=== PATIENT | female | born 1965 | race American Indian/Alaskan Native ===

== ENCOUNTER 2024-08-06 09:10 | Emergency (ER) | payer BC, SELFPAY ==
[2024-08-06 09:46] VITALS: BP 150/96; PULSE 98; RESP 16; TEMP 36.8; O2SAT 96; BMI 41.5
--- NOTE | 2024-08-06 09:52 | EDNOTE_ITS ---
ED Extremity Problem RME/HPI General Chief complaint: Extremity Problem,Nontraumatic Stated complaint: RIGHT KNEE PAIN FOR 3 MONTHS, DENIES INJURY Time Seen by Provider: 08/06/24 09:18 Arrival date/time: 08/06/24 09:10 59-year-old female presents the emergency department complaints of right knee pain ongoing x 3 months patient has had imaging already patient reports that she is a follow-up scheduled with Dr. Gutierrez orthopedist and scheduled for an outpatient MRI patient reports that she was hoping to get an MRI here in the emergency department to expedite the process Limitations: no limitations Related Data Home Medications ?Medication ?Instructions ?Recorded ?Confirmed omeprazole 40 mg capsule,delayed 40 mg PO QDAY 11/16/18 12/04/19 release zolpidem 5 mg tablet 5 mg PO QHSPRN 11/16/18 12/04/19 Previous Rx's ?Medication ?Instructions ?Recorded hydrocodone 5 mg-acetaminophen 325 1 tab PO Q4H PRN pain #10 tabs 12/04/19 mg tablet ([place]) levofloxacin 500 mg tablet 500 mg PO QDAY #7 tabs 12/04/19 (Levaquin) metronidazole 250 mg tablet 250 mg PO Q12H #14 tabs 12/04/19 (Flagyl) hydrocodone 5 mg-acetaminophen 325 1 tab PO BID PRN pain #10 tabs 08/06/24 mg tablet meloxicam 7.5 mg tablet 7.5 mg PO QDAY 7 days #7 tabs 08/06/24 Allergies Allergy/AdvReac Type Severity Reaction Status Date / Time No Known Allergies Allergy Verified 08/06/24 09:12 Review of Systems Review of Systems Systems Reviewed: All systems reviewed, normal except as documented Constitutional Constitutional: Reports system reviewed and no additional complaints, except as documented, Denies fever(s) and Denies headache(s) Eyes Eyes: Reports system reviewed and no additional complaints, except as documented and Denies blurry vision ENT Ears, Nose, Mouth, and Throat: Reports system reviewed and no additional complaints, except as documented, Denies headache(s), Denies nasal congestion and Denies nasal discharge Cardiovascular Cardiovascular: Reports system reviewed and no additional complaints, except as documented, Denies chest pain and Denies dyspnea Respiratory Respiratory: Reports system reviewed and no additional complaints, except as documented, Denies chest congestion, Denies cough and Denies dyspnea Gastrointestinal Gastrointestinal: Reports system reviewed and no additional complaints, except as documented and Denies abdominal pain Musculoskeletal Musculoskeletal: Reports system reviewed and no additional complaints, except as documented, Reports arthralgias, Denies numbness, Reports stiffness and Denies tingling Integumentary/Breasts Skin/Breast: Reports system reviewed and no additional complaints, except as documented and Denies rash Neurologic Neurologic: Reports system reviewed and no additional complaints, except as documented, Reports as per HPI, Denies headache(s), Denies numbness and Denies tingling Past Medical History Past Medical History NEUROLOGIC: Negative Neurological Disorders or Seizures CARDIAC: Negative Cardiac Disorders or Congestive Heart Failure RESPIRATORY: Positive Sleep Apnea (cpap); Negative Chronic Obstructive Pulmonary Disease (COPD) or Asthma GASTROINTESTINAL: Positive Hiatal Hernia (sleeve), Gastroesophageal Reflux Disease and Obesity; Negative Gastrointestinal Disorders GENITOURINARY: Negative Genitourinary Disorders or Renal Disease REPRODUCTIVE: Positive Previous Pregnancies (2) MUSCULOSKELETAL: Positive Musculoskeletal Disorders (low vitamin D) ENDOCRINE: Negative Endocrine Disorders, Diabetes Mellitus Type 1 or Diabetes Mellitus Type 2 HEMATOLOGIC: Positive Blood Disorders and Anemia; Negative Sickle Cell Disease or Clotting Problems OTHER HISTORY: Positive Hospitalization (post surg) and Chicken Pox; Negative Blood Transfusions or Anesthesia Reactions Family History FAMILY HISTORY: Positive Family Cardiac Disorders (mom - CABGx3) and Family Surgery (mom); Negative Family Anesthesia Reaction Surgical History SURGICAL: Positive Gastric Bypass Surgery (sleeve), Hysterectomy and Section (x2) Social History SMOKING STATUS: Never smoker ED Exam General Limitations: Present no limitations General appearance: Present alert and in no apparent distress Head Head exam: Present atraumatic, normocephalic and normal inspection Eye Eye exam: Present normal appearance, PERRL and EOMI; Absent conjunctival inject ion ENT ENT exam: Present normal exam, normal oropharynx and mucous membranes moist Neck Neck exam: Present normal inspection, full ROM and trachea midline Chest Chest inspection: Present normal inspection and symmetric chest wall rise Respiratory Respiratory exam: Present normal lung sounds bilaterally; Absent respiratory distress, wheezes, stridor or accessory muscle use Cardiovascular Cardiovascular exam: Present regular rate, normal rhythm and normal heart sounds Abdominal Exam Abdominal exam: Present soft and normal bowel sounds Extremities Exam Extremities exam: Present full ROM, tenderness, normal capillary refill and joint swelling; Absent pedal edema or calf tenderness Back Exam Back exam: Present normal inspection and full ROM Neurological Exam Neurological exam: Present alert, oriented X3 and CN II-XII intact Psychiatric Psychiatric exam: Present normal affect and normal mood Skin Skin exam: Present warm, dry, intact and normal color Course Quality Measures none Vital Signs Vital signs: Vital Signs Temperature 98.2 F 08/06/24 09:46 Pulse Rate 98 08/06/24 09:46 Respiratory Rate 16 08/06/24 09:46 Blood Pressure 150/96 H 08/06/24 09:46 Pulse Oximetry (%) 96 08/06/24 09:46 Oxygen Delivery Method Room Air 08/06/24 09:46 O2 saturation 96% room air within normal limits Extremity Problem MDM Narrative MDM Narrative:: 59-year-old female presents the emergency department complaints of right knee pain ongoing x 3 months patient has had imaging already patient reports that she is a follow-up scheduled with Dr. Gutierrez orthopedist and scheduled for an outpatient MRI patient reports that she was hoping to get an MRI here in the emergency department to expedite the process On exam patient appears well-appearing patient does not appear ill or toxic in no acute distress Patient does have knee pain but does have full range of motion patient is ambulatory Patient has a knee brace in place Explained to the patient that unfortunately we will not be able to expedite this as it is not emergent at this time Patient instructed to follow-up with her primary care doctor for her MRI and outpatient referral to Dr. Gutierrez orthopedmehul For emergent concerns patient struck to return immediately Patient data External records reviewed:: [facility] previous records Clinical information provided by:: patient Social determinants that could affect healthcare access:: none Patient has the following chronic illnesses:: See history How is presenting disease/condition affected by chronic disease/condition?: caused by Evaluation data The following diagnostics were reviewed and interpreted by me:: other (specify) (N/A) Lab and/or radiology exams considered but not ordered:: N/A Interpretation Summary: reviewed imaging from previous visit Medications / Prescriptions Medications or Prescriptions considered but not ordered:: Rx given Medication administrations:: Rx given Consultations Consultation(s) initiated? (list below): No Diagnosis Extremity Problem Differential Diagnosis: other (Knee sprain, knee fracture) Most likely diagnosis given after review of the tests above:: Knee sprain Admission Indicated Admission indicated?: not indicated Admission Request Was there a request for admission?: No Disposition Plan Disposition Plan: Discharge Discharge Attestation Discharge Attestation: The patient and all family members were given an opportunity to ask questions and understood the discharge instructions. Discharge instructions specifically effects, indications for sooner follow up or return to the emergency department, and the expected course of current diagnosis. Patient condition: Stable Discharge Plan Plan Patient Disposition: HOME (Self Care) Disposition Comment: Stable Prescriptions/Referrals Prescriptions/Med Rec: New hydrocodone-acetaminophen 5-325 mg tablet 1 tab PO BID MDD 10 PRN (Reason: pain) Qty: 10 0RF meloxicam 7.5 mg tablet 7.5 mg PO QDAY 7 Days Qty: 7 0RF No Action hydrocodone-acetaminophen [[place]] 5-325 mg tablet 1 tab PO Q4H MDD 3 PRN (Reason: pain) Qty: 10 0RF levofloxacin [Levaquin] 500 mg tablet 500 mg PO QDAY Qty: 7 0RF metronidazole [Flagyl] 250 mg tablet 250 mg PO Q12H Qty: 14 0RF omeprazole 40 mg Capsule,Delayed Release(Dr/Ec) 40 mg PO QDAY zolpidem 5 mg Tablet 5 mg PO QHSPRN Referrals: Jose Flores PA-C [Primary Care Provider] - 08/07/24 Problem List Clinical Impression: Acute pain of right knee Patient/Caregiver Discharge Instructions Education Materials: ED Arthralgia Additional Instructions: Please follow up with your primary care doctor in the next 24-48hrs for any worsening symptoms return here immediately Print Language: Mongolian Stand Alone Forms: [employer]a Award Info., Work/School Release, Patient Portal Info Letter LUÍS/BRYAN Supervising Physician LUÍS/BRYAN Supervising Physician: Dr [email or web address]
== END 2024-08-06 11:01 | disposition home or self-care (01) ==
PROVIDERS: Emergency Provider Emergency Medicine; PCP Physician Assistant
DX: M25.561 Pain in right knee (principal)
CPT/HCPCS: 99281

== ENCOUNTER 2024-09-24 09:15 | Outpatient (AMB) | payer BC, OTHER, SELFPAY ==
[2024-09-24 09:27] VITALS: BP 114/73; PULSE 83; RESP 18; TEMP 36.8; O2SAT 96; BMI 40.9
--- NOTE | 2024-09-24 09:27 | ORTHONT_ITS ---
Vital signs 09/24/24 09:27 Height 1.52 m Height Method Stated Weight 95.056 kg Weight Measurement Method Standing Scale BMI 40.9 BP 114/73 Blood Pressure Source Automatic Cuff Blood Pressure Location Right Upper Arm Position Sitting Respiration 18 Pulse 83 Pulse Source Monitor Temp 98.2 F Temp Source Temporal Artery Scan Pulse Oximetry (%) 96 Oxygen Delivery Method Room Air Med/Allergies Allergies & Medications Allergies No Known Allergies Allergy (Verified 09/24/24 09:28) Medication Reconciliation zolpidem 5 mg tablet 5 mg PO QHSPRN 11/16/18 [History Confirmed 09/24/24] hydrocodone 5 mg-acetaminophen 325 mg tablet 1 tab PO BID PRN pain #10 tabs 08/06/24 [Rx Confirmed 09/24/24] meloxicam 15 mg tablet 15 mg PO QDAY #60 tabs 09/24/24 [Rx] pantoprazole 20 mg tablet,delayed release 20 mg PO QDAY 09/24/24 [History Confirmed 09/24/24] zolpidem 5 mg tablet 5 mg PO QHS 09/24/24 [History Confirmed 09/24/24] Exam Exam Patient is in no acute distress and is cooperative with the examination today. Breathing is nonlabored. In no respiratory distress. Bilateral extremities were evaluated and demonstrates sensation intact to light touch. Palpable pedal pulses are present. No significant edema is present. Bilateral hips were examined. The patient has no pain with log roll of the hips. Internal rotation to 30 degrees and external rotation to 30 degrees is painless. Negative FADIR. The left knee was examined. The left knee is in varus alignment. Range of motion from 0-115 degrees. Knee is stable to varus and valgus as well as AP translation with <5mm. Patient has a negative McMurrays. There is no pain with patellofemoral compression and no crepitus noted. The knee is tender to palpation medially. The right knee was also examined. The right knee is in varus alignment. Range of motion from 0-120 degrees. Knee is stable to varus and valgus as well as AP translation with <5mm. Patient has a negative McMurrays. There is no pain with patellofemoral compression and no crepitus noted. The knee is tender to palpation medially. I have a standing AP which demonstrates moderate arthritis of both knees Assessment and Plan Problem List (1) Degenerative arthritis of knee, bilateral: Status: Acute Plan: Patient is a pleasant 59-year-old female with bilateral knee pain and bilateral knee arthritis. We discussed nonoperative and operative options. I would like to get weightbearing x-rays to better evaluate knee. We discussed different treatment options depending on what that shows. We also prescribed her an anti- inflammatory Office Procedures GNS Level of Care Nursing/Assessment Patient Status: Established Patient Nursing Assessment/Reassesment: Medication Reconciliation, Update PMH in EMR and Vital Signs Coordination of Care: Complex Care and Chronic Disease 1-5, Education Complex Pt/Fam, Consent,records obtained, informed consent, Results/Orders obtained and Staff clarify orders Established Patient Charge Established Patient Point Assignment: 95 Established Patient Point Charge: Level 3 (80-115) MA Intake Visit Data Collection New Patient or Established: Established Patient (seen at [facility] within 3 years) Reason for Visit:: RIGHT KNEE PAIN Seen by Clinical Staff ONLY (RN/MA): No Verbal consent obtained for Telemed visit?: No 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 PCP or OBGYN visit in last 3 months: Yes Hx Now: No Do You Feel Safe at Home: Yes Authorities Contacted: N/A Questionairres Past Medical History Past Medical History Have you ever been diagnosed with any of the following: Neurological Problems Seizures: No Cardiology Problems Congestive Heart Failure: No Respiratory Problems Chronic Obstructive Pulmonary Disease (COPD): No Asthma: No Sleep Apnea: Yes (cpap) Smoking: No Smoking Cessation Counseling: No Smoking Exposure: No Stomache/Intestinal Problems Hiatal Hernia: Yes (sleeve) Gastroesophageal Reflux Disease: Yes Obesity: Yes Genital/Urinary Problems Renal Disease: No Reproductive Problems Previous Pregnancies: Yes (2) Endocrine Problems Diabetes Mellitus Type 1: No Diabetes Mellitus Type 2: No Blood Problems Anemia: Yes Sickle Cell Disease: No Clotting Problems: No Other Problems Hospitalization: Yes (post surg) Blood Transfusions: No Anesthesia Reactions: No Chicken Pox: Yes Surgical History Hysterectomy: Yes Subjective Visit Visit for: new patient and knee Immunization / Flu Flu Vaccine in the Last 12 Months: No Flu Vaccine Exclusion Criteria: No Exclusion Criteria History of Present Illness Chief complaint: RIGHT KNEE PAIN Date of injury / onset of symptoms: 6 MONTHS Candice is a pleasant 59 yo female. Carine is a pleasant 59-year-old female presenting with bilateral knee pain worse on the right. The pain has been going on for 6 months. She received a B12 with cortisone injection in her right knee 4 weeks ago and reported receiving moderate relief in pain. Currently takes Kirby 325 once a night for the past couple weeks. Personal History Occupation: [employer] PMH: BMI BMI Counceling provided: Yes Pain Pain level (0-10): 3 Pain duration: ALL DAY Pain location: inside (medial), outside (lateral), anterior and posterior Pain quality: sharp, dull and aching Pain timing: increases with activity Associated signs & symptoms: weakness and stiffness Ambulatory data Ambulatory device: none Treatments Improvement with previous injections: No Improvement with PT: No Improvement with NSAIDS: no Review of Systems Review of Systems: All systems negative unless otherwise noted in HPI.
--- NOTE | 2024-09-24 09:33 | XR_ITS ---
Examination: Bilateral knees 2 views Right lateral knee left lateral knee 2 views Bilateral axial knees single view Technique: Bilateral AP knees standing single view, bilateral PA knees standing flexion Standing right lateral knee left lateral knee 2 views Bilateral axial knees single view Exam date and time: 2024 09 hrs. Indications: Bilateral knee pain 6 months Findings: Moderate osteopenia Moderate narrowing medial lateral joint spaces more severe right knee No patellar dislocation Moderate osteoarthritis patellofemoral joints Impression: Osteoarthritis as above
== END 2024-09-24 09:44 | disposition home or self-care (01) ==
LOC: HODSRG 09:15
PROVIDERS: PCP Physician Assistant; Referring Provider Physician Assistant; Supervising Provider Orthopaedic Surgery Adult Reconstructive Orthopaedic Surgery; Visit Provider Orthopaedic Surgery Adult Reconstructive Orthopaedic Surgery
DX: M17.0 Bilateral primary osteoarthritis of knee (principal); G47.30 Sleep apnea, unspecified
CPT/HCPCS: 73564; 99213; G0463

== ENCOUNTER 2024-10-15 08:12 | Outpatient (AMB) | payer BC, OTHER, SELFPAY ==
[2024-10-15 08:31] VITALS: BP 126/76; PULSE 79; RESP 18; TEMP 36.6; O2SAT 97; BMI 41.1
--- NOTE | 2024-10-15 08:31 | PD.ORTHCLVIS ---
Vital signs 10/15/24 08:31 Height 1.52 m Height Method Stated Weight 94.971 kg Weight Measurement Method Standing Scale BMI 41.1 BP 126/76 Blood Pressure Source Automatic Cuff Blood Pressure Location Left Upper Arm Position Sitting Respiration 18 Pulse 79 Pulse Source Monitor Temp 97.8 F Temp Source Temporal Artery Scan Pulse Oximetry (%) 97 Oxygen Delivery Method Room Air Med/Allergies Allergies & Medications Allergies No Known Allergies Allergy (Verified 10/15/24 08:32) Medication Reconciliation zolpidem 5 mg tablet 5 mg PO QHSPRN 11/16/18 [History Confirmed 10/15/24] hydrocodone 5 mg-acetaminophen 325 mg tablet 1 tab PO BID PRN pain #10 tabs 08/06/24 [Rx Confirmed 10/15/24] meloxicam 15 mg tablet 15 mg PO QDAY #60 tabs 09/24/24 [Rx Confirmed 10/15/24] pantoprazole 20 mg tablet,delayed release 20 mg PO QDAY 09/24/24 [History Confirmed 10/15/24] zolpidem 5 mg tablet 5 mg PO QHS 09/24/24 [History Confirmed 10/15/24] Exam Exam Patient is in no acute distress and is cooperative with the examination today. Breathing is nonlabored. In no respiratory distress. Bilateral extremities were evaluated and demonstrates sensation intact to light touch. Palpable pedal pulses are present. No significant edema is present. Bilateral hips were examined. The patient has no pain with log roll of the hips. Internal rotation to 30 degrees and external rotation to 30 degrees is painless. Negative FADIR. The left knee was examined. The left knee is in varus alignment. Range of motion from 0-115 degrees. Knee is stable to varus and valgus as well as AP translation with <5mm. Patient has a negative McMurrays. There is no pain with patellofemoral compression and no crepitus noted. The knee is tender to palpation medially. The right knee was also examined. The right knee is in varus alignment. Range of motion from 0-120 degrees. Knee is stable to varus and valgus as well as AP translation with <5mm. Patient has a negative McMurrays. There is no pain with patellofemoral compression and no crepitus noted. The knee is tender to palpation medially. Bilateral knee x-rays demonstrate moderate arthritis of both knees Assessment and Plan Problem List (1) Degenerative arthritis of knee, bilateral: Status: Acute Plan: Patient is a pleasant 59-year-old female with bilateral knee pain and bilateral knee arthritis. We discussed nonoperative and operative options. We discussed he has mild to moderate arthritis. We will plan for a right knee injection today of cortisone. We also discussed the weight loss is a reasonable option. She is obese and this likely is contributing to her knee pain. She is very much interested in weight loss injections and we will defer to the primary care doctor for that. I do think weight loss will significantly help with Office Procedures GNS Level of Care Nursing/Assessment Patient Status: Established Patient Nursing Assessment/Reassesment: Medication Reconciliation, Update PMH in EMR and Vital Signs Coordination of Care: Complex Care and Chronic Disease 1-5, Education Complex Pt/Fam, Consent,records obtained, informed consent, Results/Orders obtained and Staff clarify orders Established Patient Charge Established Patient Point Assignment: 95 Established Patient Point Charge: EP Level 3 (80-115) Surgical Proc/IM SQ injection Major Surgical Procedure: Yes (RIGHT KNEE INJECTION) Medication Given Medication Given Medication Given: Yes Documented Dose Given: 4 Route: Infiitration Medication Given Medication Given Medication Given: Yes Documented Dose Given: 1 Route: Infiitration Office Meds Xylocaine 10 mg/mL (1 %) injection solution Performing Provider: Baron Gutierrez MD Performing Location: [facility] Administered by: Baron Gutierrez MD on 10/15/24 09:25 Dose Route Admin Location Dispensed Lot Number Expiration Date [facility] [address] [employer] 20 mL Infiltration 20 mL [id number] 01/14/28 12174-884-49 [facility] triamcinolone acetonide 40 mg/mL suspension for injection Performing Provider: Baron Gutierrez MD Performing Location: [facility] Administered by: Baron Gutierrez MD on 10/15/24 09:25 Dose Route Admin Location Dispensed Lot Number Expiration Date 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 PCP or OBGYN visit in last 3 months: Yes Hx Now: No Do You Feel Safe at Home: Yes Authorities Contacted: N/A Questionairres Past Medical History Past Medical History Have you ever been diagnosed with any of the following: Neurological Problems Seizures: No Cardiology Problems Congestive Heart Failure: No Respiratory Problems Chronic Obstructive Pulmonary Disease (COPD): No Asthma: No Sleep Apnea: Yes (cpap) Smoking: No Smoking Cessation Counseling: No Smoking Exposure: No Stomache/Intestinal Problems Hiatal Hernia: Yes (sleeve) Gastroesophageal Reflux Disease: Yes Obesity: Yes Genital/Urinary Problems Renal Disease: No Reproductive Problems Previous Pregnancies: Yes (2) Endocrine Problems Diabetes Mellitus Type 1: No Diabetes Mellitus Type 2: No Blood Problems Anemia: Yes Sickle Cell Disease: No Clotting Problems: No Other Problems Hospitalization: Yes (post surg) Blood Transfusions: No Anesthesia Reactions: No Chicken Pox: Yes Surgical History Hysterectomy: Yes Subjective Visit Visit for: follow up visit and knee (RT KNEE ) Immunization / Flu Flu Vaccine in the Last 12 Months: No Flu Vaccine Exclusion Criteria: Refused by Patient History of Present Illness Chief complaint: RIGHT KNEE PAIN Date of injury / onset of symptoms: 6 MONTHS Candice is a pleasant 59 yo female. Carine is a pleasant 59-year-old female presenting with bilateral knee pain worse on the right. The pain has been going on for 6 months. She received a B12 with cortisone injection in her right knee 4 weeks ago and reported receiving moderate relief in pain. Currently takes Flynn 325 once a night for the past couple weeks. Personal History Occupation: [employer] PMH: none BMI Counceling provided: Yes Pain Pain level (0-10): 7 Pain duration: 2 DAYS Pain location: anterior Pain quality: sharp and burning Pain timing: night, increases with activity and stairs Associated signs & symptoms: numbness, weakness and stiffness Ambulatory data Ambulatory device: none Walking distance (minutes): 1 Treatments Number of previous injections: 0 Improvement with previous injections: No Number of Physical Therapy sessions: 0 Improvement with PT: No Improvement with NSAIDS: n/a Review of Systems Review of Systems: All systems negative unless otherwise noted in HPI.
== END 2024-10-15 09:02 | disposition home or self-care (01) ==
LOC: HODSRG 08:12
PROVIDERS: PCP Physician Assistant; Referring Provider Physician Assistant; Supervising Provider Orthopaedic Surgery Adult Reconstructive Orthopaedic Surgery; Visit Provider Orthopaedic Surgery Adult Reconstructive Orthopaedic Surgery
DX: M17.0 Bilateral primary osteoarthritis of knee (principal); M25.561 Pain in right knee; M25.562 Pain in left knee
CPT/HCPCS: 20610; 99213; J3301; J3490; G0463

== ENCOUNTER 2025-01-14 08:05 | Outpatient (AMB) | payer BC, OTHER, SELFPAY ==
--- NOTE | 2025-01-14 08:14 | PD.ORTHCLVIS ---
Vital signs 01/14/25 08:18 Height 1.52 m Height Method Stated Weight 90.265 kg Weight Measurement Method Standing Scale BMI 39.0 BP 118/79 Blood Pressure Source Automatic Cuff Blood Pressure Location Right Upper Arm Position Sitting Respiration 18 Pulse 82 Pulse Source Monitor Temp 97.3 F Temp Source Temporal Artery Scan Pulse Oximetry (%) 94 L Oxygen Delivery Method Room Air Med/Allergies Allergies & Medications Allergies No Known Allergies Allergy (Verified 01/14/25 08:18) Medication Reconciliation zolpidem 5 mg tablet 5 mg PO QHSPRN 11/16/18 [History Confirmed 01/14/25] hydrocodone 5 mg-acetaminophen 325 mg tablet 1 tab PO BID PRN pain #10 tabs 08/06/24 [Rx Confirmed 01/14/25] meloxicam 15 mg tablet 15 mg PO QDAY #60 tabs 09/24/24 [Rx Confirmed 01/14/25] pantoprazole 20 mg tablet,delayed release 20 mg PO QDAY 09/24/24 [History Confirmed 01/14/25] zolpidem 5 mg tablet 5 mg PO QHS 09/24/24 [History Confirmed 01/14/25] Office Procedures GNS Level of Care Nursing/Assessment Patient Status: Established Patient Nursing Assessment/Reassesment: Medication Reconciliation, Update PMH in EMR and Vital Signs Coordination of Care: Complex Care and Chronic Disease 1-5, Education Complex Pt/Fam, Consent,records obtained, informed consent, Results/Orders obtained and Staff clarify orders Established Patient Charge Established Patient Point Assignment: 95 Established Patient Point Charge: EP Level 3 (80-115) Surgical Proc/IM SQ injection Major Surgical Procedure: Yes (KNEE INJECTION ) Medication Given Medication Given Medication Given: Yes Documented Dose Given: 4 Route: Infiitration Medication Given Medication Given Medication Given: Yes Documented Dose Given: 1 Route: Infiitration Office Meds Xylocaine 10 mg/mL (1 %) injection solution Performing Provider: Baron Gutierrez MD Performing Location: [facility] Administered by: Baron Gutierrez MD on 01/14/25 09:41 Dose Route Admin Location Dispensed Lot Number Expiration Date [facility][NOTE 3] Furniture [employer]isher App[employer]ice 20 mL Infiltration 20 mL [id number] [facility] triamcinolone acetonide 40 mg/mL suspension for injection Performing Provider: Baron Gutierrez MD Performing Location: [facility] Administered by: Baron Gutierrez MD on 01/14/25 09:41 Dose Route Admin Location Dispensed Lot Number Expiration Date [facility][NOTE 3] Furn[employer] Apprentice 40 mg intra-articular KNEE 1 mL [id number] 07/17/26 05107-305-92 MARI VENEGAS MA Intake Visit Data Collection New Patient or Established: Established Patient (seen at [facility] within 3 years) Reason for Visit:: F/U ON KNEE INJECTION Seen by Clinical Staff ONLY (RN/MARYCARMEN): No Verbal consent obtained for Telemed visit?: No Removable Prosthodontist Required: No PCP or OBGYN visit in last 3 months: Yes Hx Now: No Do You Feel Safe at Home: Yes Authorities Contacted: N/A Questionairres Past Medical History Past Medical History Have you ever been diagnosed with any of the following: Neurological Problems Seizures: No Cardiology Problems Congestive Heart Failure: No Respiratory Problems Chronic Obstructive Pulmonary Disease (COPD): No Asthma: No Sleep Apnea: Yes (cpap) Smoking: No Smoking Cessation Counseling: No Smoking Exposure: No Stomache/Intestinal Problems Hiatal Hernia: Yes (sleeve) Gastroesophageal Reflux Disease: Yes Obesity: Yes Genital/Urinary Problems Renal Disease: No Reproductive Problems Previous Pregnancies: Yes (2) Endocrine Problems Diabetes Mellitus Type 1: No Diabetes Mellitus Type 2: No Blood Problems Anemia: Yes Sickle Cell Disease: No Clotting Problems: No Other Problems Hospitalization: Yes (post surg) Blood Transfusions: No Anesthesia Reactions: No Chicken Pox: Yes Surgical History Hysterectomy: Yes Subjective Visit Visit for: follow up visit and knee (RT KNEE ) Immunization / Flu Flu Vaccine in the Last 12 Months: No Flu Vaccine Exclusion Criteria: Refused by Patient History of Present Illness Chief complaint: RIGHT KNEE PAIN Date of injury / onset of symptoms: 6 MONTHS Candice is a pleasant 59 yo female. Carine is a pleasant 59-year-old female presenting with bilateral knee pain worse on the right. The pain has been going on for 6 months. She received a B12 with cortisone injection in her right knee 4 weeks ago and reported receiving moderate relief in pain. Currently takes [place] 325 once a night for the past couple weeks. Personal History Occupation: [employer] PMH: none BMI Counceling provided: Yes Pain Pain level (0-10): 7 Pain duration: 2 DAYS Pain location: anterior Pain quality: sharp and burning Pain timing: night, increases with activity and stairs Associated signs & symptoms: numbness, weakness and stiffness Ambulatory data Ambulatory device: none Walking distance (minutes): 1 Treatments Number of previous injections: 0 Improvement with previous injections: No Number of Physical Therapy sessions: 0 Improvement with PT: No Improvement with NSAIDS: n/a Review of Systems Review of Systems: All systems negative unless otherwise noted in HPI.
[2025-01-14 08:18] VITALS: BP 118/79; PULSE 82; RESP 18; TEMP 36.3; O2SAT 94; BMI 39.0
== END 2025-01-14 08:19 | disposition home or self-care (01) ==
LOC: HODSRG 08:05
PROVIDERS: PCP Physician Assistant; Referring Provider Physician Assistant; Supervising Provider Orthopaedic Surgery Adult Reconstructive Orthopaedic Surgery; Visit Provider Orthopaedic Surgery Adult Reconstructive Orthopaedic Surgery
DX: M25.561 Pain in right knee (principal); M25.562 Pain in left knee; G47.30 Sleep apnea, unspecified; K21.9 Gastro-esophageal reflux disease without esophagitis
CPT/HCPCS: 20610; 99213; J3301; J3490; G0463

== ENCOUNTER 2025-04-17 08:08 | Outpatient (AMB) | payer BC, OTHER, SELFPAY ==
[2025-04-17 08:21] VITALS: BP 147/68; PULSE 65; RESP 18; TEMP 36.4; O2SAT 98; BMI 36.5
--- NOTE | 2025-04-17 08:21 | PD.ORTHCLVIS ---
Vital signs 04/17/25 08:21 Height 1.55 m Height Method Stated Weight 87.742 kg Weight Measurement Method Standing Scale BMI 36.5 BP 147/68 H Blood Pressure Source Automatic Cuff Blood Pressure Location Left Upper Arm Position Sitting Respiration 18 Pulse 65 Pulse Source Monitor Temp 97.6 F Temp Source Temporal Artery Scan Pulse Oximetry (%) 98 Oxygen Delivery Method Room Air Med/Allergies Allergies & Medications Allergies No Known Allergies Allergy (Verified 04/17/25 08:26) Exam Exam Patient is in no acute distress and is cooperative with the examination today. Breathing is nonlabored. In no respiratory distress. Bilateral extremities were evaluated and demonstrates sensation intact to light touch. Palpable pedal pulses are present. No significant edema is present. Bilateral hips were examined. The patient has no pain with log roll of the hips. Internal rotation to 30 degrees and external rotation to 30 degrees is painless. Negative FADIR. The left knee was examined. The left knee is in varus alignment. Range of motion from 0-115 degrees. Knee is stable to varus and valgus as well as AP translation with <5mm. Patient has a negative McMurrays. There is no pain with patellofemoral compression and no crepitus noted. The knee is tender to palpation medially. The right knee was also examined. The right knee is in varus alignment. Range of motion from 0-120 degrees. Knee is stable to varus and valgus as well as AP translation with <5mm. Patient has a negative McMurrays. There is no pain with patellofemoral compression and no crepitus noted. The knee is tender to palpation medially. Bilateral knee x-rays demonstrate moderate arthritis of both knees Assessment and Plan Problem List (1) Degenerative arthritis of knee, bilateral: Status: Acute Plan: Patient is a pleasant 59-year-old female with bilateral knee pain and bilateral knee arthritis. We discussed nonoperative and operative options. We discussed he has mild to moderate arthritis. We will plan for a right knee injection today of cortisone. We also discussed the weight loss is a reasonable option. She is obese and this likely is contributing to her knee pain. She is very much interested in weight loss injections and we will defer to the primary care doctor for that. I do think weight loss will significantly help with Recommend knee cortisone injection as patient would like to proceed with conservative treatment at this time. The risks and benefits of the procedure were reviewed with the patient and patient gave verbal consent to continue with the procedure. Procedure: performed by Dr. Gutierrez Using sterile technique the Right knee was thoroughly prepped with alcohol, and approximately 1 cc of Depo-Medrol 80mg/mL and 4 cc of 0.2% ropivacaine was injected without resistance into the medial tibial femoral joint space. The patient tolerated the procedure. Office Procedures GNS Level of Care Nursing/Assessment Patient Status: Established Patient Nursing Assessment/Reassesment: Medication Reconciliation, Update PMH in EMR and Vital Signs Coordination of Care: Complex Care and Chronic Disease 1-5, Education Complex Pt/Fam, Consent,records obtained, informed consent, Results/Orders obtained and Staff clarify orders Established Patient Charge Established Patient Point Assignment: 95 Established Patient Point Charge: EP Level 3 (80-115) Medication Given Medication Given Medication Given: Yes Documented Dose Given: 1 Route: Infiitration Medication Given Medication Given Medication Given: Yes Documented Dose Given: 4 Route: Infiitration Office Meds methylprednisolone acetate 80 mg/mL suspension for injection Performing Provider: Baron Gutierrez MD Performing Location: [facility] Administered by: Baron Gutierrez MD on 04/17/25 09:48 Dose Route Admin Location Dispensed Lot Number Expiration Date Package [facility] NDC Behavioral Interventionist 80 mg intra-articular 1 mL [id number] 01/13/27 [address]-2 [id number] [employer] ropivacaine (PF) 2 mg/mL (0.2 %) injection solution Performing Provider: Baron Gutierrez MD Performing Location: [facility] Administered by: Baron Gutierrez MD on 04/17/25 09:48 Dose Route Admin Location Dispensed Lot Number Expiration Date Package [employer] N[employer] Behavioral Interventionist 20 mL Infiltration 20 mL [id number] 08/15/27 08754-032-48 [id number] [facility] Intake Visit Data Collection New Patient or Established: Established Patient (seen at [facility] within 3 years) Reason for Visit:: F/U ON KNEE INJECTION Seen by Clinical Staff ONLY (RN/MA): No Verbal consent obtained for Telemed visit?: No Managing Manager Required: No PCP or OBGYN visit in last 3 months: Yes Hx Now: No Do You Feel Safe at Home: Yes Authorities Contacted: N/A Questionairres Past Medical History Past Medical History Have you ever been diagnosed with any of the following: Neurological Problems Seizures: No Cardiology Problems Congestive Heart Failure: No Respiratory Problems Chronic Obstructive Pulmonary Disease (COPD): No Asthma: No Sleep Apnea: Yes (cpap) Smoking: No Smoking Cessation Counseling: No Smoking Exposure: No Stomache/Intestinal Problems Hiatal Hernia: Yes (sleeve) Gastroesophageal Reflux Disease: Yes Obesity: Yes Genital/Urinary Problems Renal Disease: No Reproductive Problems Previous Pregnancies: Yes (2) Endocrine Problems Diabetes Mellitus Type 1: No Diabetes Mellitus Type 2: No Blood Problems Anemia: Yes Sickle Cell Disease: No Clotting Problems: No Other Problems Hospitalization: Yes (post surg) Blood Transfusions: No Anesthesia Reactions: No Chicken Pox: Yes Surgical History Hysterectomy: Yes Subjective Visit Visit for: follow up visit and knee (RT KNEE ) Immunization / Flu Flu Vaccine in the Last 12 Months: No Flu Vaccine Exclusion Criteria: Refused by Patient History of Present Illness Chief complaint: RIGHT KNEE PAIN Date of injury / onset of symptoms: 6 MONTHS Candice is a pleasant 59 yo female. Carine is a pleasant 59-year-old female presenting with bilateral knee pain worse on the right. The pain has been going on for 6 months. She received a B12 with cortisone injection in her right knee 4 weeks ago and reported receiving moderate relief in pain. Currently takes [place] 325 once a night for the past couple weeks. She reports the last injection helped and would like another 1 today Personal History Occupation: [employer] PMH: none BMI Counceling provided: Yes Pain Pain level (0-10): 7 Pain duration: 2 DAYS Pain location: anterior Pain quality: sharp and burning Pain timing: night, increases with activity and stairs Associated signs & symptoms: numbness, weakness and stiffness Ambulatory data Ambulatory device: none Walking distance (minutes): 1 Treatments Number of previous injections: 0 Improvement with previous injections: No Number of Physical Therapy sessions: 0 Improvement with PT: No Improvement with NSAIDS: n/a Review of Systems Review of Systems: All systems negative unless otherwise noted in HPI.
== END 2025-04-17 08:29 | disposition home or self-care (01) ==
LOC: HODSRG 08:08
PROVIDERS: PCP Physician Assistant; Referring Provider Physician Assistant; Supervising Provider Orthopaedic Surgery Adult Reconstructive Orthopaedic Surgery; Visit Provider Orthopaedic Surgery Adult Reconstructive Orthopaedic Surgery
DX: M25.561 Pain in right knee (principal); M25.562 Pain in left knee; M17.0 Bilateral primary osteoarthritis of knee; E66.9 Obesity, unspecified; Z68.36 Body mass index [BMI] 36.0-36.9, adult
CPT/HCPCS: 20610; 99213; J1010; J2795; G0463